=== PATIENT | female | born 1975 ===

== ENCOUNTER 2021-10-19 16:15 | Observation (INO) | payer OTHER ==
[~2021-10-19 16:15] MED LIST: Lactated Ringers 1,000 ML IV SCH
[2021-10-19] MEDS ORDERED: Ketorolac 30 MG/ML SDV IVPUSH PRN (17:19)
--- NOTE | 2021-10-19 17:24 | PCM.HP.2 ---
H&P History of Present Illness - General Date of Service: 10/19/21 Admit Problem/Dx: Admission Diagnosis/Problem Admission Diagnosis/Problem Torsion of ovary Source of Information: Patient History Limitations: Reports: No Limitations - History of Present Illness Initial Comments - Free Text/Narative: Patient had onset of right lower quadrant pain at roughly 3:00 this morning. Pain continued to worsen, and she presented to outside ER. At the outside facility, she was evaluated and ultimately diagnosed with right ovarian torsion. She was transferred to [place] for surgical management. She currently rates the pain as 6/10, did get as high as 7/10. Pain has remained in the RLQ, but radiates outward. Describes the pain as more pressure than sharp. Improves with: Reports: Medication Worsens with: Reports: None Associated Symptoms: Reports: No Other Symptoms - Related Data Allergies/Adverse Reactions: Allergies Allergy/AdvReac Type Severity Reaction Status Date / Time fluconazole [From Diflucan] Allergy Hives Verified 10/19/21 17:01 metronidazole Allergy Hives Verified 10/19/21 17:01 phentermine Allergy Tachycardia Verified 10/19/21 17:01 Sulfa (Sulfonamide Allergy Hives Verified 10/19/21 16:56 Antibiotics) tramadol Allergy Hives Verified 10/19/21 17:01 Home Medications: Home Meds Cholecalciferol (Vitamin D3) [Vitamin D] 5,000 unit PO DAILY 10/19/21 [History] Levothyroxine Sodium [Levothyroxine] 88 mcg PO DAILY 10/19/21 [History] Past Medical History Gastrointestinal History: Reports: Fatty Liver 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 History: Reports: Dysfunctional Uterine Bleeding, Fibroids : 3 Para: 3 Endocrine/Metabolic History: Reports: Hypothyroidism - Infectious Disease History Other Infectious Disease History: COVID-29 August 2020 - Past Surgical History GI Surgical History: Reports: Cholecystectomy Female Surgical History: Reports: Breast Biopsy, Section (2004), D&C (2003), Hysterectomy (2012) Musculoskeletal Surgical History: Reports: Arthroscopic Knee (right 07/2021) Social & Family History - Family History Cardiac: Reports: High Cholesterol (mother, father) Endocrine/Metabolic: Reports: Diabetes, type II (father) - Tobacco Use Tobacco Use Status *Q: Current Every Day Tobacco User Tobacco Use Within Last Twelve Months: Cigarettes Years of Tobacco use: 12 Packs/Tins Daily: 1 (0.25) - Alcohol Use Alcohol Use History: No - Recreational Drug Use Recreational Drug Use: No - Sexual History Sexual History: Reports: Sexually Active, Single Partner - Living Situation & Occupation Living situation: Reports: 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) H&P Review of Systems - Review of Systems: Review Of Systems: See Below General: Reports: No Symptoms HEENT: Reports: No Symptoms Pulmonary: Reports: No Symptoms Cardiovascular: Reports: No Symptoms Gastrointestinal: Reports: Abdominal Pain Genitourinary: Reports: No Symptoms Musculoskeletal: Reports: No Symptoms Skin: Reports: No Symptoms Psychiatric: Reports: No Symptoms Neurological: Reports: No Symptoms Hematologic/Lymphatic: Reports: No Symptoms Immunologic: Reports: No Symptoms Exam - Exam Exam: See Below - Exam General: Alert, Oriented HEENT: Hearing Intact, Mucosa Moist & [place] Neck: Supple Lungs: Clear to Auscultation, Normal Respiratory Effort Cardiovascular: Regular Rate, Regular Rhythm GI/Abdominal Exam: Soft, No Distention, Tender (right lower quadrant) (Female) Exam: Deferred Rectal (Female) Exam: Deferred Back Exam: Full Range of Motion Extremities: Non-Tender, No Pedal Edema Skin: Warm, Dry, Intact Neuro Extensive - Mental Status: Alert, Oriented x3, Normal Mood/Affect, Normal Cognition Psychiatric: Alert, Normal Affect, Normal Mood - Patient Data Lab Results Last 24 hrs: Laboratory Results - last 24 hr 10/19/21 Range/Units 16:09 WBC 15.03 H (4.0-11.0) K/uL RBC 4.47 (4.30-5.90) M/uL Hgb 13.5 (12.0-16.0) g/dL Hct 40.4 (36.0-46.0) % MCV 90.4 (80.0-98.0) fL MCH 30.2 (27.0-32.0) pg MCHC 33.4 (31.0-37.0) g/dL RDW Std Deviation 43.5 (28.0-62.0) fl RDW Coeff of William 13 (11.0-15.0) % Plt Count 376 (150-400) K/uL MPV 11.50 (7.40-12.00) fL Nucleated RBC % 0.0 /100WBC Nucleated RBCs # 0 K/uL Outside facility labs: CMP: Na 138, K 3.8, Cl 106, Glu 110, BUN 12, Cr 0.7, Ca 9.7, AST 15, ALT 24 CBC: WBC 16.4, Hgb 13.5, Hct 40.4, Platelets 360 COVID negative Result Diagrams: 10/19/21 16:09 Imaging Impressions Last 24 hrs: Outside facility imaging: CT abdomen/pelvis: The right ovary is enlarged and heterogeneous. Pelvic ultrasound recommended. Small amount of free fluid may be physiologic. Findings suggestive of colitis. Transvaginal US: The uterus is absent. The right ovary is enlarged measuring 6.0 x 3.7cm. Moderate amount of free fluid in the pelvis. No definite Doppler flow in the right ovary. A torsed right ovary with hemorrhage could have this appearance. The left ovary is normal with normal-appearing arterial inflow and venous outflow. *Q Meaningful Use (ADM) - VTE *Q VTE Mechanical Contraindications *Q: At Risk for Falls VTE Pharmacological Contraindications *Q: Patient Scheduled Surgery VTE Anticoagulation Contraindications: Med/TX Not Indicated/Need - VTE Risk Assess *Q Each Risk Factor Represents 1 Point: Age 41 - 59 years, Obesity ( BMI > 25 kg/m2) Total Score 1 Point Risk Factors: 2 Each Risk Factor Represents 2 Points: None Total Score 2 Point Risk Factors: 0 Each Risk Factor Represents 3 Points: None Total Score 3 Point Risk Factors: 0 Each Risk Factor Represents 5 Points: None Total Score 5 Point Risk Factors: 0 Venous Thromboembolism Risk Factor Score *Q: 2 - Stroke *Q Aspirin Contraindications Stroke *Q: Other (Use Special Inst) (not indicated) Anticoagulation Contraindications Stroke *Q: Med/TX Not Indicated/Need Antithrombotic Contraindications Stroke *Q: Med/TX Not Indicated/Need Thrombolytic/Fibrinolytic Contraindications Stroke *Q: Med/TX Not Indicated/Need Statin Contraindications Stroke *Q: Med/TX Not Indicated/Need Rehabilitation Assessment Contraindication *Q: Med/tx not indicated/need - AMI *Q Aspirin Contraindications AMI *Q: Med/TX Not Indicated/Need Thrombolytic/Fibrinolytic Contraindications IV (AMI) *Q: Med/tx not indicated/need Statin Contraindications AMI *Q: Med/TX Not Indicated/Need - Problem List (1) Torsion of right ovary SNOMED Code(s): 25311412093553859 ICD Code: N83.511 - TORSION OF RIGHT OVARY AND OVARIAN PEDICLE Status: Acute Current Visit: Yes Problem List Initiated/Reviewed/Updated: Yes Orders Last 24hrs: Active Orders 24 hr Category Date Time Status Patient Status [ADT] Routine ADT 10/19/21 17:16 Ordered Antiembolic Devices [RC] PER UNIT ROUTINE Care 10/19/21 17:17 Ordered Procedure Site Prep Instruct [RC] PER UNIT ROUTINE Care 10/19/21 17:16 Ordered Verify Patient Consent Obtain [RC] PER UNIT ROUTINE Care 10/19/21 17:16 Ordered Vital Signs [RC] PER UNIT ROUTINE Care 10/19/21 17:16 Ordered NPO [Nothing Per Oral Diet] [DIET] Diet 10/20/21 Dinner Active TYPE AND SCREEN [BBK] Stat Lab 10/19/21 16:09 Received Ketorolac [Toradol] Med 10/19/21 17:19 Ordered 15 mg IVPUSH Q6H PRN Lactated Ringers [Ringers, Lactated] 1,000 ml Med 10/19/21 16:00 Active IV ASDIRECTED Sequential Compression Device [OM.PC] Per Unit Routine Oth 10/19/21 17:16 Ordered Medication Orders Lactated Ringer's (Ringers, Lactated) 1,000 mls @ 125 mls/hr IV ASDIRECTED JILLIAN Assessment/Plan Comment:: 45yo patient with suspected right ovarian torsion with rupture of ovarian cyst resulting in pelvic free fluid. I was able to review outside US images, and agree with radiology interpretation of torsion. Discussed with patient need for surgical intervention. We discussed untwisting of the right ovary and leaving in situ versus surgical removal. She has had a hysterectomy and would like her right ovary removed. Plan for diagnostic laparoscopy, right oophorectomy, and any indicated procedures. We reviewed the risks of surgery, including but not limited to, infection, bleeding, injury to surrounding organs/vessels/nerves, anesthesia complications, and . The patient voiced understanding and desires to proceed. Will restart Levothyroxine in AM. Patient has been NPO since last night. - Mortality Measure Prognosis:: Good
--- NOTE | 2021-10-19 17:54 | PCM.PREANE ---
Preanesthetic Assessment - Anesthesia/Transfusion/Family Hx Anesthesia History: Prior Anesthesia Without Reaction Family History of Anesthesia Reaction: No Transfusion History: No Prior Transfusion(s) - Review of Systems General: No Symptoms Pulmonary: No Symptoms Cardiovascular: No Symptoms Gastrointestinal: Abdominal Pain Neurological: No Symptoms Other: Reports: None - Physical Assessment NPO Status Date: 10/19/21 NPO Status Time: 09:00 ASA Class: 3E Mental Status: Alert & Oriented x3 Airway Class: Mallampati = 3 Dentition: Reports: Normal Dentition Thyro-Mental Finger Breadths: 3 Mouth Opening Finger Breadths: 3 ROM/Head Extension: Full Lungs: Clear to Auscultation, Normal Respiratory Effort Cardiovascular: Regular Rate, Regular Rhythm - Lab Values: Laboratory Last Values WBC 15.03 K/uL (4.0-11.0) H 10/19/21 16:09 RBC 4.47 M/uL (4.30-5.90) 10/19/21 16:09 Hgb 13.5 g/dL (12.0-16.0) 10/19/21 16:09 Hct 40.4 % (36.0-46.0) 10/19/21 16:09 MCV 90.4 fL (80.0-98.0) 10/19/21 16:09 MCH 30.2 pg (27.0-32.0) 10/19/21 16:09 MCHC 33.4 g/dL (31.0-37.0) 10/19/21 16:09 RDW Std Deviation 43.5 fl (28.0-62.0) 10/19/21 16:09 RDW Coeff of William 13 % (11.0-15.0) 10/19/21 16:09 Plt Count 376 K/uL (150-400) 10/19/21 16:09 MPV 11.50 fL (7.40-12.00) 10/19/21 16:09 Nucleated RBC % 0.0 /100WBC 10/19/21 16:09 Nucleated RBCs # 0 K/uL 10/19/21 16:09 - Allergies Allergies/Adverse Reactions: Allergies Allergy/AdvReac Type Severity Reaction Status Date / Time fluconazole [From Diflucan] Allergy Hives Verified 10/19/21 17:01 metronidazole Allergy Hives Verified 10/19/21 17:01 phentermine Allergy Tachycardia Verified 10/19/21 17:01 Sulfa (Sulfonamide Allergy Hives Verified 10/19/21 16:56 Antibiotics) tramadol Allergy Hives Verified 10/19/21 17:01 - Acknowledgements Anesthesia Type Planned: General Anesthesia Pt an Appropriate Candidate for the Planned Anesthesia: Yes Alternatives and Risks of Anesthesia Discussed w Pt/Guardian: Yes Pt/Guardian Understands and Agrees with Anesthesia Plan: Yes PreAnesthesia Questionnaire Gastrointestinal History: Reports: Fatty Liver 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 Partial hysterectomy due to fibroids - 2012. Endocrine/Metabolic History: Reports: Hypothyroidism - Infectious Disease History Infectious Disease History: Reports: None Other Infectious Disease History: COVID-29 August 2020 - Past Surgical History GI Surgical History: Reports: Cholecystectomy Female Surgical History: Reports: Breast Biopsy, Section (2004), D&C (2003), Hysterectomy (2012) Musculoskeletal Surgical History: Reports: Arthroscopic Knee (right 07/2021) - SUBSTANCE USE Tobacco Use Status *Q: Current Every Day Tobacco User Tobacco Use Within Last Twelve Months: Cigarettes Recreational Drug Use History: No - HOME MEDS Home Medications: Home Meds Cholecalciferol (Vitamin D3) [Vitamin D] 5,000 unit PO DAILY 10/19/21 [History] EPINEPHrine [Epinephrine] 1 PRN 10/19/21 [History] Levothyroxine Sodium [Levothyroxine] 88 mcg PO DAILY 10/19/21 [History] - CURRENT (IN HOUSE) MEDS Current Meds: Current Medications Lactated Ringer's (Ringers, Lactated) 1,000 mls @ 125 mls/hr IV ASDIRECTED JILLIAN Ketorolac Tromethamine (Ketorolac 30 Mg/Ml Sdv) 15 mg IVPUSH Q6H PRN PRN Reason: Abdominal Pain Stop: 10/24/21 17:19 Last Admin: 10/19/21 17:43 Dose: 15 mg Documented by:
[2021-10-19] MEDS ORDERED: Midazolam 1 MG/ML 2 ML SDV ONE (18:02)
[2021-10-19] MEDS ORDERED: Dexmedetomidine 200 MCG/2 ML SDV ONE (18:02)
[2021-10-19] MEDS ORDERED: Esmolol 100 MG/10 ML SDV ONE (18:02)
[2021-10-19] MEDS ORDERED: Dexamethasone 4 MG/ML 5 ML MDV ONE (18:02)
[2021-10-19] MEDS ORDERED: Rocuronium Bromide 50 MG/5 ML Syringe ONE (18:02)
[2021-10-19] MEDS ORDERED: Lidocaine 2% 5 ML SDV ONE (18:02)
[2021-10-19] MEDS ORDERED: Propofol 200 MG/20 ML SDV ONE (18:02)
[2021-10-19] MEDS ORDERED: Water For Injection, Sterile 20 ML ONE (18:02)
[2021-10-19] MEDS ORDERED: fentaNYL 100 MCG/2 ML SDV ONE (18:02)
[2021-10-19] MEDS ORDERED: Bupivacaine 0.5% 10 ML SDV ONE (18:13)
[2021-10-19] MEDS ORDERED: Sugammadex Sodium 200 MG/2 ML VIAL ONE (19:06)
[2021-10-19] MEDS ORDERED: Ondansetron 4 MG/2 ML SDV ONE (19:06)
[2021-10-19] MEDS ORDERED: Ondansetron 4 MG/2 ML SDV IVPUSH PRN (19:20)
[2021-10-19] MEDS ORDERED: Naloxone 0.4 MG/ML SDV IVPUSH PRN (19:20)
[2021-10-19] MEDS ORDERED: HYDROmorphone 1 MG/ML Syringe IVPUSH PRN (19:20)
[2021-10-19] MEDS ORDERED: Metoclopramide 10 MG/2 ML SDV IVPUSH PRN (19:20)
[2021-10-19] MEDS ORDERED: fentaNYL 100 MCG/2 ML SDV IVPUSH PRN ×2 (19:20→20:01)
[2021-10-19] MEDS ORDERED: Albuterol 0.083% 2.5 MG/3 ML Neb Soln NEB PRN (19:20)
[2021-10-19] MEDS ORDERED: Morphine 2 MG/ML SYRINGE IVPUSH PRN (19:38)
[2021-10-19] MEDS ORDERED: Acetaminophen/oxyCODONE 325-5 MG Tab PO PRN ×2 (20:01)
[2021-10-19] MEDS ORDERED: Docusate Sodium 100 MG Cap PO PRN (20:04)
[2021-10-19] MEDS ORDERED: Ibuprofen 800 MG Tab PO PRN (20:04)
--- NOTE | 2021-10-19 20:05 | PCM.POSTAN ---
POST ANESTHESIA ASSESSMENT - MENTAL STATUS Mental Status: Alert, Oriented - VITAL SIGNS Vital Signs: Last Vital Signs Temp 37.3 C 10/19/21 19:43 Pulse 64 10/19/21 19:53 Resp 16 10/19/21 19:53 BP 125/71 10/19/21 19:53 Pulse Ox 99 10/19/21 19:53 - RESPIRATORY Respiratory Status: Respiratory Rate WNL, Airway Patent, O2 Saturation Stable - CARDIOVASCULAR CV Status: Pulse Rate WNL, Blood Pressure Stable - GASTROINTESTINAL GI Status: No Symptoms - POST OP HYDRATION Hydration Status: Adequate & Stable
--- NOTE | 2021-10-19 20:09 | PCM.OPNOTE ---
- General Post-Op/Procedure Note Date of Surgery/Procedure: 10/19/21 Operative Procedure(s): Diagnostic laparoscopy, right oophorectomy, evacuation of hemoperitoneum Findings: 100cc blood in pelvis Right ovary twisted upon IP ligament Suspected ruptured hemorrhagic right ovarian cyst Pre Op Diagnosis: 45yo with suspected right ovarian torsion Post-Op Diagnosis: 45yo with right ovarian torsion and rupture of hemorrhagic ovarian cyst Anesthesia Technique: General ET Tube Primary Surgeon: Devorah Arias Anesthesia Provider: Arnold Barros Pathology: Right ovary Fluid Replacement, Intraop: 1,000 EBL in mLs: 10 Complications: None Condition: Good Free Text/Narrative:: Intake & Output 10/19/21 10/19/21 10/19/21 06:59 14:59 22:59 Output Total 2 Balance -2
--- NOTE | 2021-10-19 20:14 | PCM48HPAN ---
Post Anesthesia Note - EVALUATION WITHIN 48HRS OF ANESTHETIC Vital Signs: Last Vital Signs Temp 37.3 C 10/19/21 19:43 Pulse 64 10/19/21 19:53 Resp 16 10/19/21 19:53 BP 125/71 10/19/21 19:53 Pulse Ox 99 10/19/21 19:53
--- NOTE | 2021-10-19 23:34 | OR ---
SURGEON: Devorah Arias MD DATE OF PROCEDURE: 10/19/2021 PREOPERATIVE DIAGNOSIS: 45-year-old with pelvic pain and suspected right ovarian torsion. POSTOPERATIVE DIAGNOSIS: 45-year-old with right ovarian torsion and suspected hemorrhagic right ovarian cyst with bleeding into the pelvis. PROCEDURES: Diagnostic laparoscopy, right oophorectomy, evacuation of hemoperitoneum. PRIMARY SURGEON: Devorah Arias MD ANESTHESIA: General endotracheal by Arnold Barros. IV FLUIDS: 1000 mL of LR. ESTIMATED BLOOD LOSS: 10 mL. SPECIMEN: Right ovary. FINDINGS: Edematous and hemorrhagic right ovary twisted upon the IP ligament. The right ovary appeared to have a cyst that had ruptured and then bleeding into the pelvis. There was 100 mL of blood in the pelvis. Peristalsis of the right ureter was noted. INDICATIONS: This is a 45-year-old who presented to an outside facility complaining of right lower quadrant pain. Upon presentation, CT of the abdomen and pelvis was obtained, which showed an irregular enlarged ovary with abnormal appearance. A pelvic ultrasound was performed, which showed a moderate amount of fluid in the pelvis along with absent Doppler flow to the right ovary. The right ovary appeared edematous and hemorrhagic. The patient was transferred to [place] for surgical management of suspected right ovarian torsion. I was able to review the outside images prior to the procedure. Upon presentation to our facility, recommendation for surgical management was reviewed with the patient. I offered detorsion of the right ovary with removal of any cystic area versus right oophorectomy. The patient previously has had a hysterectomy and desired to have a right oophorectomy. We discussed that the left ovary would remain unless it appeared greatly abnormal. The risks, benefits, and alternatives of surgery were reviewed with the patient. DESCRIPTION OF PROCEDURE: The patient was taken to the operating room where general anesthesia was obtained. She was placed in dorsal lithotomy position with legs in Yellofins stirrups. She was prepared and draped in normal sterile fashion. 0.5% bupivacaine without epinephrine was infiltrated into the infraumbilical fold. A 5 mm lateral incision was made with the scalpel in the infraumbilical fold. The abdomen was entered under direct visualization with a 5 mm trocar. The abdomen was insufflated with carbon dioxide to a pressure of 15 mmHg. The aforementioned findings were noted in the pelvis. The Trendelenburg position was used to facilitate moving bowel out of the pelvis. Two bilateral lower quadrant ports were placed under direct laparoscopic visualization after infiltration of 0.5% bupivacaine without epinephrine. The hemoperitoneum was evacuated. The right ureter was noted. The right ovary was clamped along the IP ligament and ligated with LigaSure. It was then transected. Good hemostasis was noted. The right lower quadrant port was removed and extended to accommodate a 12 mm port. An Endo Catch bag was placed through the 12 mm port and the ovary was placed within the bag. The bag was brought to the incision, which had to be extended to accommodate the large ovarian size. After removal of the ovary, the port was replaced and the IP ligament was confirmed to be hemostatic. The Jermaine-Paco was used to close the fascial incision, the largest fascial incision with 0 Vicryl suture. The largest incision in the subcutaneous tissue was reapproximated with 0 Vicryl suture. All three incisions were closed with 4-0 Monocryl in subcuticular fashion. Pressure dressings were applied to each incision. The patient was awakened and taken to recovery room in stable condition. All sponge, lap, and needle counts were correct x3. [id number] / MODL /[id number]
[2021-10-20 06:29] LABS: BLOOD UREA NITROGEN,BUN 8 mg/dL (7.0-18.0); CARBON DIOXIDE,CO2 24.8 mmol/L (21.0-32.0); CHLORIDE,CL 104 mmol/L (98-107); GLUCOSE RANDOM 129 mg/dL (74-106); POTASSIUM,K 4.3 mmol/L (3.5-5.1); SODIUM,NA 138 mmol/L (136-145)
--- NOTE | 2021-10-20 07:17 | PCM.PN ---
- General Info Date of Service: 10/20/21 Subjective Update: Patient states she has minimal pain since surgery. Has already showered and ambulated in room. Tolerating oral intake without nausea. Functional Status: Reports: Pain Controlled, Tolerating Diet, Ambulating, Urinating - Review of Systems General: Reports: No Symptoms HEENT: Reports: No Symptoms Pulmonary: Reports: No Symptoms Cardiovascular: Reports: No Symptoms Gastrointestinal: Reports: No Symptoms Genitourinary: Reports: No Symptoms Musculoskeletal: Reports: No Symptoms Skin: Reports: No Symptoms Neurological: Reports: No Symptoms Psychiatric: Reports: No Symptoms - Patient Data Vitals - Most Recent: Last Vital Signs Temp 36.8 C 10/20/21 05:00 Pulse 62 10/20/21 05:00 Resp 18 10/20/21 05:00 BP 107/67 10/20/21 05:00 Pulse Ox 98 10/20/21 05:00 Weight - Most Recent: 111.1 kg I&O - Last 24 Hours: Intake & Output 10/19/21 10/20/21 10/20/21 22:59 06:59 14:59 Intake Total 1999 Output Total 2 Balance 1997 Lab Results Last 24 Hours: Laboratory Results - last 24 hr 10/19/21 10/19/21 10/19/21 Range/Units 16:09 16:09 21:08 WBC 15.03 H (4.0-11.0) K/uL RBC 4.47 (4.30-5.90) M/uL Hgb 13.5 (12.0-16.0) g/dL Hct 40.4 (36.0-46.0) % MCV 90.4 (80.0-98.0) fL MCH 30.2 (27.0-32.0) pg MCHC 33.4 (31.0-37.0) g/dL RDW Std Deviation 43.5 (28.0-62.0) fl RDW Coeff of William 13 (11.0-15.0) % Plt Count 376 (150-400) K/uL MPV 11.50 (7.40-12.00) fL Nucleated RBC % 0.0 /100WBC Nucleated RBCs # 0 K/uL Sodium (136-145) mmol/L Potassium (3.5-5.1) mmol/L Chloride (98-107) mmol/L Carbon Dioxide (21.0-32.0) mmol/L BUN (7.0-18.0) mg/dL Creatinine (0.6-1.0) mg/dL Est Cr Clr Drug Dosing mL/min Estimated GFR (MDRD) ml/min Glucose (74-106) mg/dL Calcium (8.5-10.1) mg/dL SARS-CoV-2 RNA ([place]) NEGATIVE (NEGATIVE) Blood Type O POSITIVE Antibody Screen NEGATIVE 10/20/21 10/20/21 Range/Units 05:14 05:14 WBC 14.09 H (4.0-11.0) K/uL RBC 4.44 (4.30-5.90) M/uL Hgb 13.3 (12.0-16.0) g/dL Hct 40.1 (36.0-46.0) % MCV 90.3 (80.0-98.0) fL MCH 30.0 (27.0-32.0) pg MCHC 33.2 (31.0-37.0) g/dL RDW Std Deviation 43.6 (28.0-62.0) fl RDW Coeff of William 13 (11.0-15.0) % Plt Count 361 (150-400) K/uL MPV 11.60 (7.40-12.00) fL Nucleated RBC % 0.0 /100WBC Nucleated RBCs # 0 K/uL Sodium 138 (136-145) mmol/L Potassium 4.3 (3.5-5.1) mmol/L Chloride 104 (98-107) mmol/L Carbon Dioxide 24.8 (21.0-32.0) mmol/L BUN 8 (7.0-18.0) mg/dL Creatinine 0.7 (0.6-1.0) mg/dL Est Cr Clr Drug Dosing 93.25 mL/min Estimated GFR (MDRD) > 60.0 ml/min Glucose 129 H (74-106) mg/dL Calcium 8.5 (8.5-10.1) mg/dL SARS-CoV-2 RNA ([place]) (NEGATIVE) Blood Type Antibody Screen Med Orders - Current: Current Medications Albuterol (Albuterol 0.083% 2.5 Mg/3 Ml Neb Soln) 2.5 mg NEB ONETIME PRN PRN Reason: Wheezing Docusate Sodium (Docusate Sodium 100 Mg Cap) 100 mg PO BID PRN PRN Reason: Constipation Last Admin: 10/19/21 22:47 Dose: 100 mg Documented by: Droperidol (Droperidol 5 Mg/2 Ml Sdv) 0.625 mg IVPUSH ONETIME PRN PRN Reason: Nausea/Vomiting Fentanyl (Fentanyl 100 Mcg/2 Ml Sdv) 50 mcg IVPUSH Q5M PRN PRN Reason: Pain (mild 1-3) Fentanyl (Fentanyl 100 Mcg/2 Ml Sdv) 50 mcg IVPUSH Q2H PRN PRN Reason: Pain Hydromorphone HCl (Hydromorphone 1 Mg/Ml Syringe) 1 mg IVPUSH Q10M PRN PRN Reason: Pain (moderate 4-6) Last Admin: 10/19/21 20:07 Dose: 1 mg Documented by: Lactated Ringer's (Ringers, Lactated) 1,000 mls @ 125 mls/hr IV ASDIRECTED [facility] Last Admin: 10/19/21 16:20 Dose: 125 mls/hr Documented by: Ibuprofen (Ibuprofen 800 Mg Tab) 800 mg PO Q8H PRN PRN Reason: Abdominal Pain Last Admin: 10/19/21 22:47 Dose: 800 mg Documented by: Ketorolac Tromethamine (Ketorolac 30 Mg/Ml Sdv) 15 mg IVPUSH Q6H PRN PRN Reason: Abdominal Pain Stop: 10/24/21 17:19 Last Admin: 10/19/21 17:43 Dose: 15 mg Documented by: Levothyroxine Sodium (Levothyroxine 88 Mcg Tab) 88 mcg PO ACBREAKFAST [facility] Metoclopramide HCl (Metoclopramide 10 Mg/2 Ml Sdv) 10 mg IVPUSH ONETIME PRN PRN Reason: Nausea/Vomiting Morphine Sulfate (Morphine 2 Mg/Ml Syringe) 2 mg IVPUSH Q10M PRN PRN Reason: Pain (severe 7-10) Naloxone HCl (Naloxone 0.4 Mg/Ml Sdv) 0.1 mg IVPUSH ASDIRECTED PRN PRN Reason: Respiratory Depression Ondansetron HCl (Ondansetron 4 Mg/2 Ml Sdv) 4 mg IVPUSH ONETIME PRN PRN Reason: Nausea/Vomiting Oxycodone/Acetaminophen (Acetaminophen/Oxycodone 325-5 Mg Tab) 2 tab PO Q4H PRN PRN Reason: Pain Oxycodone/Acetaminophen (Acetaminophen/Oxycodone 325-5 Mg Tab) 1 tab PO Q4H PRN PRN Reason: Pain Last Admin: 10/20/21 06:02 Dose: 1 tab Documented by: Discontinued Medications Bupivacaine HCl (Bupivacaine 0.5% 10 Ml Sdv) Confirm Administered Dose 20 ml . ROUTE .STK-MED ONE Stop: 10/19/21 18:14 Dexamethasone (Dexamethasone 4 Mg/Ml 5 Ml Mdv) Confirm Administered Dose 20 mg .ROUTE .STK-MED ONE Stop: 10/19/21 18:03 Dexmedetomidine HCl (Dexmedetomidine 200 Mcg/2 Ml Sdv) Confirm Administered Dose 200 mcg .ROUTE .STK-MED ONE Stop: 10/19/21 18:03 Esmolol HCl (Esmolol 100 Mg/10 Ml Sdv) Confirm Administered Dose 100 mg .ROUTE .STK-MED ONE Stop: 10/19/21 18:03 Fentanyl (Fentanyl 100 Mcg/2 Ml Sdv) Confirm Administered Dose 100 mcg .ROUTE .STK-MED ONE Stop: 10/19/21 18:03 Sterile Water (Sterile Water For Injection) Confirm Administered Dose 20 mls @ a s directed .ROUTE .STK-MED ONE Stop: 10/19/21 18:03 Acetaminophen (Ofirmev 1000 Mg/100 Ml) Confirm Administered Dose 100 mls @ as directed .ROUTE .STK-MED ONE Stop: 10/19/21 19:07 Lidocaine (Lidocaine 2% 5 Ml Sdv) Confirm Administered Dose 5 ml .ROUTE .STK-MED ONE Stop: 10/19/21 18:03 Midazolam HCl (Midazolam 1 Mg/Ml 2 Ml Sdv) Confirm Administered Dose 2 mg .ROUTE .STK-MED ONE Stop: 10/19/21 18:03 Ondansetron HCl (Ondansetron 4 Mg/2 Ml Sdv) Confirm Administered Dose 4 mg .ROUTE .STK-MED ONE Stop: 10/19/21 19:07 Propofol (Propofol 200 Mg/20 Ml Sdv) Confirm Administered Dose 200 mg .ROUTE . STK-MED ONE Stop: 10/19/21 18:03 Rocuronium [place] (Rocuronium [place] 50 Mg/5 Ml Syringe) Confirm Administered Dose 50 mg .ROUTE .STK-MED ONE Stop: 10/19/21 18:03 Sugammadex Sodium (Sugammadex Sodium 200 Mg/2 Ml Vial) Confirm Administered Dose 200 mg .ROUTE .STK-MED ONE Stop: 10/19/21 19:07 - Exam General: Alert, Oriented Neck: Supple Lungs: Normal Respiratory Effort GI/Abdominal Exam: Soft, No Distention, Tender (appropriate tenderness to palpation) Extremities: Non-Tender, No Pedal Edema Skin: Warm, Dry, Intact Wound/Incisions: Healing Well Neurological: No New Focal Deficit Psy/Mental Status: Alert, Normal Affect, Normal Mood - Patient Data Lab Results Last 24 hrs: Laboratory Results - last 24 hr 10/19/21 10/19/21 10/19/21 Range/Units 16:09 16:09 21:08 WBC 15.03 H (4.0-11.0) K/uL RBC 4.47 (4.30-5.90) M/uL Hgb 13.5 (12.0-16.0) g/dL Hct 40.4 (36.0-46.0) % MCV 90.4 (80.0-98.0) fL MCH 30.2 (27.0-32.0) pg MCHC 33.4 (31.0-37.0) g/dL RDW Std Deviation 43.5 (28.0-62.0) fl RDW Coeff of William 13 (11.0-15.0) % Plt Count 376 (150-400) K/uL MPV 11.50 (7.40-12.00) fL Nucleated RBC % 0.0 /100WBC Nucleated RBCs # 0 K/uL Sodium (136-145) mmol/L Potassium (3.5-5.1) mmol/L Chloride (98-107) mmol/L Carbon Dioxide (21.0-32.0) mmol/L BUN (7.0-18.0) mg/dL Creatinine (0.6-1.0) mg/dL Est Cr Clr Drug Dosing mL/min Estimated GFR (MDRD) ml/min Glucose (74-106) mg/dL Calcium (8.5-10.1) mg/dL SARS-CoV-2 RNA ([place]) NEGATIVE (NEGATIVE) Blood Type O POSITIVE Antibody Screen NEGATIVE 10/20/21 10/20/21 Range/Units 05:14 05:14 WBC 14.09 H (4.0-11.0) K/uL RBC 4.44 (4.30-5.90) M/uL Hgb 13.3 (12.0-16.0) g/dL Hct 40.1 (36.0-46.0) % MCV 90.3 (80.0-98.0) fL MCH 30.0 (27.0-32.0) pg MCHC 33.2 (31.0-37.0) g/dL RDW Std Deviation 43.6 (28.0-62.0) fl RDW Coeff of William 13 (11.0-15.0) % Plt Count 361 (150-400) K/uL MPV 11.60 (7.40-12.00) fL Nucleated RBC % 0.0 /100WBC Nucleated RBCs # 0 K/uL Sodium 138 (136-145) mmol/L Potassium 4.3 (3.5-5.1) mmol/L Chloride 104 (98-107) mmol/L Carbon Dioxide 24.8 (21.0-32.0) mmol/L BUN 8 (7.0-18.0) mg/dL Creatinine 0.7 (0.6-1.0) mg/dL Est Cr Clr Drug Dosing 93.25 mL/min Estimated GFR (MDRD) > 60.0 ml/min Glucose 129 H (74-106) mg/dL Calcium 8.5 (8.5-10.1) mg/dL SARS-CoV-2 RNA ([place]) (NEGATIVE) Blood Type Antibody Screen Result Diagrams: 10/20/21 05:14 10/20/21 05:14 Sepsis Event Note - Evaluation Sepsis Screening Result: No Definite Risk - Focused Exam Vital Signs: Vital Signs Temp Pulse Resp BP Pulse Ox 10/20/21 05:00 36.8 C 62 18 107/67 98 10/20/21 00:20 66 16 128/68 95 10/19/21 23:10 36.3 C 67 18 111/62 96 10/19/21 22:34 68 18 114/53 L 96 10/19/21 21:54 61 18 118/70 97 10/19/21 21:39 51 L 18 113/68 93 L 10/19/21 21:24 52 L 18 108/65 93 L 10/19/21 21:09 60 18 111/59 L 92 L 10/19/21 20:54 36.4 C 58 L 18 114/68 94 L 10/19/21 20:25 60 12 102/51 L 93 L 10/19/21 20:20 55 L 12 99/47 L 93 L 10/19/21 20:15 61 12 102/52 L 96 10/19/21 20:10 61 12 102/52 L 98 10/19/21 20:05 63 10 L 104/52 L 94 L 10/19/21 19:58 66 16 115/63 96 10/19/21 19:53 64 16 125/71 99 10/19/21 19:48 67 20 127/70 99 10/19/21 19:43 37.3 C 81 18 120/68 98 - Problem List & Annotations (1) Torsion of right ovary SNOMED Code(s): 95194846187340936 Code(s): N83.511 - TORSION OF RIGHT OVARY AND OVARIAN PEDICLE Status: Acute Current Visit: Yes - Problem List Review Problem List Initiated/Reviewed/Updated: Yes - My Orders Last 24 Hours: My Active Orders 10/19/21 Dinner Regular Diet [DIET] Lactated Ringers [Ringers, Lactated] 1,000 ml IV ASDIRECTED 10/19/21 17:16 Patient Status [ADT] Routine Procedure Site Prep Instruct [RC] PER UNIT ROUTINE Verify Patient Consent Obtain [RC] PER UNIT ROUTINE Sequential Compression Device [OM.PC] Per Unit Routine 10/19/21 17:17 Antiembolic Devices [RC] PER UNIT ROUTINE 10/19/21 17:19 Ketorolac [Toradol] 15 mg IVPUSH Q6H PRN 10/19/21 20:01 Patient Status [ADT] Routine Vital Signs [RC] Q4H Acetaminophen/oxyCODONE [Percocet 325-5 MG] 1 tab PO Q4H PRN Acetaminophen/oxyCODONE [Percocet 325-5 MG] 2 tab PO Q4H PRN fentaNYL [Sublimaze] 50 mcg IVPUSH Q2H PRN Peripheral IV Discontinue [OM.PC] Routine Resuscitation Status Routine 10/19/21 20:02 Ambulate [RC] PER UNIT ROUTINE Notify Provider Vital Signs [RC] PRN Up ad [place] [RC] PER UNIT ROUTINE 10/19/21 20:03 Notify Provider Status Change [RC] PRN DVT/VTE Prophylaxis Reflex [OM.PC] Routine 10/19/21 20:04 Antiembolic Devices [RC] .Routine VTE/DVT Education [RC] PER UNIT ROUTINE Docusate Sodium [Colace] 100 mg PO BID PRN Ibuprofen [Motrin] 800 mg PO Q8H PRN 10/20/21 07:08 Ready for Discharge [RC] PER UNIT ROUTINE 10/20/21 07:30 Levothyroxine [Synthroid] 88 mcg PO ACBREAKFAST 10/20/21 Dinner NPO [Nothing Per Oral Diet] [DIET] - Assessment Assessment:: 45yo s/p diagnostic laparoscopy, right oophorectomy, and evacuation of hemoperitoneum for right ovarian torsion and ruptured hemorrhagic cyst, POD#1 - Plan Plan:: Continue routine post-operative cares, encourage ambulation. Suspect patient has obstructive sleep apnea due to snoring and difficulty keeping airway open after extubation. Discussed with patient and her regarding PCP evaluation and treatment. Discharge home today with follow-up in 2 weeks. Reviewed discharge instructions/precautions. All questions answered.
[2021-10-20] MEDS ORDERED: Levothyroxine 88 MCG Tab PO SCH (07:30)
== END 2021-10-20 08:55 ==
LOC: MW.SDS 16:15 → MW.OB 16:18 → MW.SDS 17:16 → MW.OB 17:16
PROVIDERS: ADMIT Obstetrics & Gynecology; ATTEND Obstetrics & Gynecology
DX: N83.511 Torsion of right ovary and ovarian pedicle (principal); E03.9 Hypothyroidism, unspecified; F17.210 Nicotine dependence, cigarettes, uncomplicated; Z01.812 Encounter for preprocedural laboratory examination; Z20.822 Contact with and (suspected) exposure to COVID-19; Z88.8 Allergy status to other drugs, medicaments and biological substances; Z88.2 Allergy status to sulfonamides; Z79.899 Other long term (current) drug therapy; Z79.890 Hormone replacement therapy; Z98.890 Other specified postprocedural states; Z90.49 Acquired absence of other specified parts of digestive tract
CPT/HCPCS: 36415; 58661; 80048; 85027; 86850; 86900; 86901; 87635; 96374; A9270; G0378; J0131; J1100; J1170; J1885; J2250; J2405; J2704; J3010; J3490; J7030; J7120; 00840; U0002